=== PATIENT | male | born 2000 | race Caucasian/White ===

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

== ENCOUNTER → 2021-08-23 | Outpatient (CLI) | payer OTHER, SELFPAY ==
[~2021-08-23] MED LIST: NAPR220C14 PO; ONDA4TAB6 PO
== END ==
LOC: M OUTALCOH 08:10
PROVIDERS: ATTEND Psychiatry & Neurology Psychiatry
DX: Z03.89 Encounter for observation for other suspected diseases and conditions ruled out (principal)

== ENCOUNTER 2021-09-19 15:32 | Outpatient (RCR) | payer OTHER, SELFPAY ==
[2021-09-21] MEDS ORDERED: NAPR220C14 PO (15:52)
[2021-09-21] MEDS ORDERED: ONDA4TAB6 PO (20:42)
== END 2021-09-22 ==
LOC: M OUTALCOH 15:32
PROVIDERS: ATTEND Psychiatry & Neurology Psychiatry
DX: F12.10 Cannabis abuse, uncomplicated (principal)
CPT/HCPCS: 90834; H0050

== ENCOUNTER 2021-09-21 15:45 | Emergency (ER) | payer OTHER, SELFPAY ==
[~2021-09-21] VITALS: Ht 167.6 cm; Wt 65.3 kg
[2021-09-21 15:46] VITALS: BP 127/91
[2021-09-21] MEDS ORDERED: NAPR220C14 PO (15:52)
[2021-09-21] MEDS ORDERED: KETOROLAC 30 MG/ML 1ML VIAL IV ONE (17:20)
[2021-09-21] MEDS ORDERED: NS 1,000 ML IV ONE (17:20)
--- NOTE | 2021-09-21 17:39 | REP ---
INDICATION: SOB COMPARISON: None. TECHNIQUE: PA and lateral. FINDINGS: The mediastinum and cardiac silhouette are normal. The lung sexton are clear and without acute consolidation, effusion, or pneumothorax. The skeletal structures are intact and normal. IMPRESSION: No acute cardiopulmonary process. <Electronically signed by Jamar Mackey > 09/21/21 [id number]
[2021-09-21 18:38] LABS: BASO % 0.4 % (0.0-1.0); EOS % 0.6 % (0.0-3.0); HEMATOCRIT 38.5 % (42.0-52.0); HEMOGLOBIN 13.4 g/dl (13.5-17.5); LYMPH # 1.7 10^3/uL (1.5-5.0); LYMPH % 23.8 % (24.0-44.0); MEAN CORPUSCULAR HEMOGLOBIN 30.5 pg (27.0-33.0); MEAN CORPUSCULAR HGB CONC 34.8 g/dl (32.0-36.5); MEAN CORPUSCULAR VOLUME 87.7 fl (80.0-96.0); MONO # 0.5 10^3/uL (0.0-0.8); MONO % 7.3 % (2.0-8.0); NEUTROPHILS # 4.8 10^3/uL (1.5-8.5); NEUTROPHILS % 67.8 % (36.0-66.0); PLATELET COUNT, AUTOMATED 231 10^3/uL (150-450); RED BLOOD COUNT 4.39 10^6/uL (4.30-6.10); WHITE BLOOD COUNT 7.1 10^3/uL (4.0-10.0)
[2021-09-21 18:42] LABS: MONO REFLEX EBV COMP NEGATIVE (NEGATIVE)
[2021-09-21 19:07] LABS: BLOOD UREA NITROGEN 9 MG/DL (7-18); CALCIUM LEVEL 9.1 MG/DL (8.5-10.1); CARBON DIOXIDE LEVEL 29 MEQ/L (21-32); CHLORIDE LEVEL 107 MEQ/L (98-107); CREATININE FOR GFR 0.91 MG/DL (0.70-1.30); GLUCOSE, FASTING 92 MG/DL (70-100); POTASSIUM SERUM 3.5 MEQ/L (3.5-5.1); SODIUM LEVEL 140 MEQ/L (136-145)
[2021-09-21] MEDS ORDERED: ACETAMINOPHEN 500 MG TAB PO ONE (20:40)
[2021-09-21] MEDS ORDERED: ONDA4TAB6 PO (20:42)
[2021-09-21 21:13] LABS: C REACTIVE PROTEIN QUANTITATIV 1.12 MG/DL (0.00-0.30)
[2021-09-21 21:28] LABS: ERYTHROCYTE SEDIMENTATION RATE 7 mm/hr (0-15)
[2021-09-25 21:07] LABS: EBV VIRAL CAPSID AG IgG 60.2 U/mL (0.0-17.9); EBV VIRAL CAPSID AG IgM <36.0 U/mL (0.0-35.9); Lyme Disease IgG Ab 18 kDa Ban Absent (.); Lyme Disease IgG Ab 23 kDa Ban Absent (.); Lyme Disease IgG Ab 28 kDa Ban Absent (.); Lyme Disease IgG Ab 30 kDa Ban Absent (.); Lyme Disease IgG Ab 39 kDa Ban Absent (.); Lyme Disease IgG Ab 41 kDa Ban Absent (.); Lyme Disease IgG Ab 45 kDa Ban Absent (.); Lyme Disease IgG Ab 58 kDa Ban Absent (.); Lyme Disease IgG Ab 66 kDa Ban Absent (.); Lyme Disease IgG Ab 93 kDa Ban Absent (.); Lyme Disease IgG West Blot Int Negative (.); Lyme Disease IgG/IgM Antibodie <0.91 ISR (0.00-0.90); Lyme Disease IgM Ab 23 kDa Ban Present (.); Lyme Disease IgM Ab 39 kDa Ban Absent (.); Lyme Disease IgM Ab 41 kDa Ban Absent (.); Lyme Disease IgM Ab Quantitati 0.91 index (0.00-0.79); Lyme Disease IgM West Blot Int Negative (.)
== END 2021-09-21 21:22 | disposition home or self-care (01) ==
LOC: M ED 15:45
DX: R11.2 Nausea with vomiting, unspecified (principal); R53.83 Other fatigue; R51.9 Headache, unspecified; R52 Pain, unspecified
CPT/HCPCS: 71046; 80048; 85025; 85652; 86140; 86308; 86617; 86664; 86665; 87389; 87798; 87880; 96361; 96374; 99283; J1885

== ENCOUNTER 2021-10-17 16:00 | Outpatient (RCR) | payer MEDICAID, OTHER, SELFPAY | END 2021-10-23 | LOC: M OUTALCOH 16:00 | PROVIDERS: ATTEND Psychiatry & Neurology Psychiatry | DX: F12.10 Cannabis abuse, uncomplicated (principal) ==

== ENCOUNTER 2021-11-07 16:00 | Outpatient (RCR) | payer MEDICAID | END 2021-11-20 | LOC: M OUTALCOH 16:00 | PROVIDERS: ATTEND Psychiatry & Neurology Psychiatry | DX: F12.10 Cannabis abuse, uncomplicated (principal) ==

== ENCOUNTER → 2022-03-21 | Outpatient (CLI) | payer MEDICAID | LOC: M OUTALCOH 08:27 | PROVIDERS: ATTEND Psychiatry & Neurology Psychiatry | DX: Z13.89 Encounter for screening for other disorder (principal) ==

== ENCOUNTER 2022-04-18 15:00 | Outpatient (RCR) | payer MEDICAID | END 2022-04-22 | LOC: M OUTALCOH 15:00 | PROVIDERS: ATTEND Psychiatry & Neurology Psychiatry | DX: F12.10 Cannabis abuse, uncomplicated (principal) ==

== ENCOUNTER → 2022-05-23 | Outpatient (RCR) | payer MEDICAID | LOC: M OUTALCOH 04-25 14:02 | PROVIDERS: ATTEND Psychiatry & Neurology Psychiatry | DX: F12.10 Cannabis abuse, uncomplicated (principal) ==

== ENCOUNTER 2022-06-20 10:00 | Outpatient (RCR) | payer MEDICAID | END 2022-06-22 | LOC: M OUTALCOH 10:00 | PROVIDERS: ATTEND Psychiatry & Neurology Psychiatry | DX: F12.10 Cannabis abuse, uncomplicated (principal) ==

== ENCOUNTER → 2022-07-05 | Outpatient (REF) | payer MEDICAID ==
[2022-07-05 19:02] LABS: GC DNA AMPLIFICATION POSITIVE (NEGATIVE)
== END ==
LOC: M LAB REF 16:34
PROVIDERS: ATTEND Physician Assistant
DX: Z20.2 Contact with and (suspected) exposure to infections with a predominantly sexual mode of transmission (principal)

== ENCOUNTER 2022-07-11 14:00 | Outpatient (RCR) | payer MEDICAID | END 2022-07-23 | LOC: M OUTALCOH 14:00 | PROVIDERS: ATTEND Psychiatry & Neurology Psychiatry | DX: F12.10 Cannabis abuse, uncomplicated (principal) ==

== ENCOUNTER → 2022-07-11 | Outpatient (REF) | payer MEDICAID ==
[2022-07-11 23:52] LABS: GC DNA AMPLIFICATION NEGATIVE (NEGATIVE)
== END ==
LOC: M LAB REF 21:45
PROVIDERS: ATTEND Physician Assistant
DX: J02.9 Acute pharyngitis, unspecified (principal); Z20.2 Contact with and (suspected) exposure to infections with a predominantly sexual mode of transmission

== ENCOUNTER → 2022-07-26 | Outpatient (REF) | payer OTHER ==
[2022-07-26 19:40] LABS: GC DNA AMPLIFICATION NEGATIVE (NEGATIVE)
== END ==
LOC: M LAB REF 16:19
PROVIDERS: ATTEND Physician Assistant Medical
DX: Z11.3 Encounter for screening for infections with a predominantly sexual mode of transmission (principal)

== ENCOUNTER → 2022-11-29 | Outpatient (CLI) | payer MEDICAID | LOC: M OUTALCOH 07:37 | PROVIDERS: ATTEND Psychiatry & Neurology Psychiatry | DX: Z03.89 Encounter for observation for other suspected diseases and conditions ruled out (principal) ==

== ENCOUNTER → 2023-01-17 | Outpatient (CLI) | payer MEDICAID | LOC: M OUTALCOH 07:09 | PROVIDERS: ATTEND Psychiatry & Neurology Psychiatry | DX: Z53.9 Procedure and treatment not carried out, unspecified reason (principal) ==

== ENCOUNTER 2023-02-15 09:58 | Outpatient (RCR) | payer SELFPAY, MEDICAID | END 2023-02-20 | LOC: M OUTALCOH 09:58 | PROVIDERS: ATTEND Psychiatry & Neurology Psychiatry | DX: F12.20 Cannabis dependence, uncomplicated (principal) ==

== ENCOUNTER 2023-03-15 11:00 | Outpatient (RCR) | payer MEDICAID | END 2023-03-22 | LOC: M OUTALCOH 11:00 | PROVIDERS: ATTEND Psychiatry & Neurology Psychiatry | DX: F12.20 Cannabis dependence, uncomplicated (principal) ==

== ENCOUNTER 2023-04-18 09:55 | Outpatient (RCR) | payer MEDICAID | END 2023-04-22 | LOC: M OUTALCOH 09:55 | PROVIDERS: ATTEND Psychiatry & Neurology Psychiatry | DX: F12.20 Cannabis dependence, uncomplicated (principal) ==

== ENCOUNTER 2023-05-01 15:52 | Outpatient (RCR) | payer MEDICAID | END 2023-05-23 | LOC: M OUTALCOH 15:52 | PROVIDERS: ATTEND Psychiatry & Neurology Psychiatry | DX: F12.10 Cannabis abuse, uncomplicated (principal) ==

== ENCOUNTER 2024-06-15 15:21 | Emergency (ER) | payer MEDICAID, OTHER ==
[~2024-06-15] VITALS: Ht 167.6 cm; Wt 69.3 kg
[~2024-06-15 15:21] MED LIST changes: +ONDA-282 PO; -ONDA4TAB6 PO
[2024-06-15] MEDS ORDERED: IBUP-1022 PO (17:48)
[2024-06-15 18:21] VITALS: BP 121/61; TEMP 99.1; O2SAT 99
== END 2024-06-15 18:24 | disposition home or self-care (01) ==
LOC: M ED 15:21
DX: S93.402A Sprain of unspecified ligament of left ankle, initial encounter (principal); X50.0XXA Overexertion from strenuous movement or load, initial encounter; Y92.9 Unspecified place or not applicable; Y93.89 Activity, other specified; Y99.0 Civilian activity done for income or pay; Z79.1 Long term (current) use of non-steroidal anti-inflammatories (NSAID)

== ENCOUNTER 2024-12-04 10:09 | Emergency (ER) | payer OTHER ==
[~2024-12-04] VITALS: Ht 170.2 cm; Wt 73.5 kg
[~2024-12-04 10:09] MED LIST changes: +IBUP-1022 PO
[2024-12-04 11:21] VITALS: BP 121/75; TEMP 96.9; O2SAT 99
[2024-12-04] MEDS: diazePAM 5MG TABLET PO ONE (12:22)
[2024-12-04] MEDS: KETOROLAC 30 MG/ML 1ML VIAL IV ONE (12:22)
[2024-12-04] MEDS: ACETAMINOPHEN 500 MG TAB PO ONE (12:22)
[2024-12-04] MEDS ORDERED: MEDR4PAK PO (12:23)
[2024-12-04] MEDS ORDERED: TIZA4CAP PO (12:23)
== END 2024-12-04 12:29 | disposition home or self-care (01) ==
LOC: M ED 10:09
DX: M62.838 Other muscle spasm (principal); M54.9 Dorsalgia, unspecified; V49.40XA Driver injured in collision with unspecified motor vehicles in traffic accident, initial encounter; Y92.9 Unspecified place or not applicable; Y93.9 Activity, unspecified; Y99.9 Unspecified external cause status
CPT/HCPCS: 72125; 72128; 72131; 96374; 99284; J1885